=== PATIENT | male | born 1955 | race Caucasian/White ===

== ENCOUNTER 2019-08-01 15:57 | Emergency (ER) | payer SELFPAY ==
--- NOTE | 2019-08-01 16:10 | ERPHSYRPT ---
- History of Present Illness Time Seen by Provider: 08/01/19 16:10 Source: patient Exam Limitations: no limitations Physician History: 63 y/o white male presents with scalp laceration. 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 no loc. pt not on anticoag tx. pt was cutting wood with an electric saw. pt fell back and hit his head. tetanus status unknown. Timing/Duration: today Quality: painful (mild) Severity: mild Location: scalp Associated Symptoms: denies symptoms Allergies/Adverse Reactions: No Known Drug Allergies Allergy (Verified 08/01/19 16:16) Home Medications: No Reportable Medications [No Reported Medications] 08/01/19 [History] Hx Tetanus, Diphtheria Vaccination/Date Given: Yes Hx Influenza Vaccination/Date Given: Yes Hx Pneumococcal Vaccination/Date Given: No - Review of Systems Constitutional: No Symptoms Eyes: No Symptoms Ears, Nose, & Throat: No Symptoms Respiratory: No Symptoms Cardiac: No Symptoms Abdominal/Gastrointestinal: No Symptoms Genitourinary Symptoms: No Symptoms Musculoskeletal: No Symptoms Skin: Other (scalp laceration) Neurological: No Symptoms Psychological: No Symptoms Endocrine: No Symptoms Hematologic/Lymphatic: No Symptoms Immunological/Allergic: No Symptoms All Other Systems: Reviewed and Negative - Past Medical History Pertinent Past Medical History: No Neurological History: No Pertinent History ENT History: No Pertinent History Cardiac History: No Pertinent History Respiratory History: No Pertinent History Endocrine Medical History: No Pertinent History Musculoskeletal History: No Pertinent History GI Medical History: No Pertinent History History: No Pertinent History Psycho-Social History: No Pertinent History Male Reproductive Disorders: No Pertinent History - Past Surgical History Past Surgical History: Yes Neuro Surgical History: No Pertinent History Cardiac: No Pertinent History Respiratory: No Pertinent History Gastrointestinal: No Pertinent History Genitourinary: No Pertinent History Musculoskeletal: Orthopedic Surgery Male Surgical History: No Pertinent History Other Surgical History: right hand surgery x2 - Social History Smoking Status: Never smoker Exposure to second hand smoke: Yes Drug Use: none Patient Lives Alone: Yes - Nursing Vital Signs Nursing Vital Signs: Pain Scale Pain Intensity 0 - Physical Exam General Appearance: no apparent distress, alert Eye Exam: PERRL/EOMI, eyes nml inspection Ears, Nose, Throat Exam: normal ENT inspection, moist mucous membranes Neck Exam: normal inspection, non-tender, supple, full range of motion Respiratory Exam: airway intact, No chest tenderness, No respiratory distress Gastrointestinal/Abdomen Exam: No tenderness Rectal Exam: not done Back Exam: normal inspection, normal range of motion, No CVA tenderness, No vertebral tenderness Extremity Exam: normal inspection, normal range of motion, pelvis stable Neurologic Exam: alert, oriented x 3, cooperative, 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 no active bleeding) Lymphatic Exam: No adenopathy SpO2 Interpretation: normal O2 Delivery: Room Air Procedures - Laceration/Wound Repair Head Wound Location: head Wound Length (cm): 5 Wound's Depth, Shape: superficial, linear Wound Explored: to base Irrigated: Yes Hibiclens Prep: Yes Wound Repaired With: Arco (4) Number of Sutures: 4 (nury) Layer Closure?: No Progress: 08/01/19 16:39 no complaints. you well. - Course Nursing assessment & vital signs reviewed: Yes Ordered Tests: Medication Summary Discontinued Medications Generic Name Dose Route Start Last Admin Trade Name Freq PRN Reason Stop Dose Admin Diphtheria/Tetanus/Acell Pertussis 0.5 ml 08/01/19 16:24 08/01/19 16:31 Adacel Vial IM 08/01/19 16:25 0.5 ml .ONCE ONE Administration - Progress Progress: improved Counseled pt/family regarding: diagnosis, need for follow-up - Departure Departure Disposition: Home Clinical Impression: Scalp laceration Condition: Stable Critical Care Time: No Additional Instructions: keep dry for 24 hours. after 24 hours may wash daily and apply antibiotic ointment. staple removal in 8 to 10 days. tylenol and ibuprofen for pain
[2019-08-01] MEDS ORDERED: Adacel Vial IM ONE ×2 (16:24→16:30)
== END 2019-08-01 16:52 | disposition home or self-care (01) ==
LOC: ED 15:57
DX: S01.01XA Laceration without foreign body of scalp, initial encounter (principal); W01.198A Fall on same level from slipping, tripping and stumbling with subsequent striking against other object, initial encounter; Y93.H9 Activity, other involving exterior property and land maintenance, building and construction
CPT/HCPCS: 12002; 90471; 90715; 99283

== ENCOUNTER 2019-08-11 00:19 | Emergency (ER) | payer MEDICAID ==
[2019-08-11 01:00] VITALS: PULSE 77; O2SAT 97
--- NOTE | 2019-08-11 01:14 | ERPHSYRPT ---
- History of Present Illness Time Seen by Provider: 08/11/19 01:01 Source: patient Exam Limitations: no limitations Patient Subjective Stated Complaint: pt has arrived in er for staple removal on scalp Triage Nursing Assessment: pt alert and orietned. no pain at this time Physician History: 63 YO PRESNTED FOR NURY REMOVAL FROM SCALP PUT IN ALMOST 10 DAYS AGO WITH NO BLEEDING OR SWELLING/DISCHARGE. Location: scalp Allergies/Adverse Reactions: No Known Drug Allergies Allergy (Verified 08/01/19 16:16) Home Medications: No Reportable Medications [No Reported Medications] 08/01/19 [History] Hx Tetanus, Diphtheria Vaccination/Date Given: Yes Hx Influenza Vaccination/Date Given: Yes Hx Pneumococcal Vaccination/Date Given: No - Review of Systems Constitutional: No Symptoms Eyes: No Symptoms Ears, Nose, & Throat: No Symptoms Respiratory: No Symptoms Cardiac: No Symptoms - Past Medical History Pertinent Past Medical History: No Neurological History: No Pertinent History ENT History: No Pertinent History Cardiac History: No Pertinent History Respiratory History: No Pertinent History Endocrine Medical History: No Pertinent History Musculoskeletal History: No Pertinent History GI Medical History: No Pertinent History History: No Pertinent History Psycho-Social History: No Pertinent History Male Reproductive Disorders: No Pertinent History - Past Surgical History Past Surgical History: Yes Neuro Surgical History: No Pertinent History Cardiac: No Pertinent History Respiratory: No Pertinent History Gastrointestinal: No Pertinent History Genitourinary: No Pertinent History Musculoskeletal: Orthopedic Surgery Male Surgical History: No Pertinent History Other Surgical History: right hand surgery x2 - Social History Smoking Status: Never smoker Exposure to second hand smoke: Yes Drug Use: none Patient Lives Alone: Yes - Nursing Vital Signs Nursing Vital Signs: Initial Vital Signs Temperature 97.7 F 08/11/19 00:49 Pulse Rate 77 08/11/19 00:49 Respiratory Rate 18 08/11/19 00:49 O2 Sat by Pulse Oximetry 97 08/11/19 00:49 Pain Scale Pain Intensity 0 - Physical Exam General Appearance: no apparent distress Eye Exam: eyes nml inspection Ears, Nose, Throat Exam: normal ENT inspection Neck Exam: normal inspection, other (MID PARIETAL AREA [address] WITH [facility] ) Respiratory Exam: normal breath sounds Cardiovascular Exam: regular rate/rhythm SpO2: 97 - Course Nursing assessment & vital signs reviewed: Yes - Progress Progress: improved Progress Note: 08/11/19 01:13 STAPLE IS REMOVED. [facility] . PATIENT COUNSELED Counseled pt/family regarding: need for follow-up - Departure Departure Disposition: Home Clinical Impression: Encounter for removal of nury Condition: Stable Critical Care Time: No Referrals: DOCTOR,NO FAMILY [Primary Care Provider] - Follow Up with PCP/3 days
== END 2019-08-11 01:15 | disposition home or self-care (01) ==
LOC: ED 00:19
DX: Z48.02 Encounter for removal of sutures (principal)
CPT/HCPCS: 99283

== ENCOUNTER 2020-03-24 07:26 | Emergency (ER) | payer MEDICAID, OTHER ==
[2020-03-24] MEDS ORDERED: TORAdol 30 mg Injection ONE (07:41)
[2020-03-24] MEDS: TORAdol 30 mg Injection IM ONE (07:43)
--- NOTE | 2020-03-24 07:51 | ERPHSYRPT ---
- History of Present Illness Time Seen by Provider: 03/24/20 07:36 Source: patient Exam Limitations: no limitations Patient Subjective Stated Complaint: PT states "I was up on a machine and I fell off and hit my right lower leg." Triage Nursing Assessment: Pt presented alert and oriented X 3, skin pwd Pt ambulates with a limp. Pt has a contusion noted to right lower leg and deep abrasion to right lower leg just below his knee. Physician History: 64 years old generally healthy male presented in the ER with chief complaint of right upper tibial injury after he fell off of a machine and hit the foot rest at work prior to arrival. He has abrasion with minimal bleeding initially but currently stopped. He is complaining of mild to moderate dull aching to sharp pain especially with ambulation and applying pressure. Minimal difficulty walking. Pain is better with resting. Is also complaining of small abrasion in the left posterior thigh with minimal to no pain. Did not hit his head. No loss of consciousness. No injury anywhere else. Up to date with tetanus. Allergies/Adverse Reactions: No Known Drug Allergies Allergy (Verified 08/01/19 16:16) Hx Tetanus, Diphtheria Vaccination/Date Given: Yes Hx Influenza Vaccination/Date Given: No Hx Pneumococcal Vaccination/Date Given: No Immunizations Up to Date: Yes Travel Risk - International Travel Have you traveled outside of the country in past 3 weeks: No - Coronavirus Screening Are you exhibiting any of the following symptoms?: No Close contact with a COVID-19 positive Pt in past 14-21 Days: No - Review of Systems Constitutional: No Symptoms Eyes: No Symptoms Ears, Nose, & Throat: No Symptoms Respiratory: No Symptoms Cardiac: No Symptoms Abdominal/Gastrointestinal: No Symptoms Musculoskeletal: Fall, Injury Skin: Skin Lesions Neurological: No Symptoms Psychological: No Symptoms Endocrine: No Symptoms Hematologic/Lymphatic: No Symptoms Immunological/Allergic: No Symptoms - Past Medical History Pertinent Past Medical History: No Neurological History: No Pertinent History ENT History: No Pertinent History Cardiac History: No Pertinent History Respiratory History: No Pertinent History Endocrine Medical History: No Pertinent History Musculoskeletal History: No Pertinent History GI Medical History: No Pertinent History History: No Pertinent History Psycho-Social History: No Pertinent History Male Reproductive Disorders: No Pertinent History - Past Surgical History Past Surgical History: Yes Neuro Surgical History: No Pertinent History Cardiac: No Pertinent History Respiratory: No Pertinent History Gastrointestinal: No Pertinent History Genitourinary: No Pertinent History Musculoskeletal: Orthopedic Surgery Male Surgical History: No Pertinent History Other Surgical History: right hand surgery x2 - Social History Smoking Status: Never smoker Exposure to second hand smoke: Yes Drug Use: none Patient Lives Alone: No - Nursing Vital Signs Nursing Vital Signs: Initial Vital Signs Temperature 99.4 F 03/24/20 07:32 Pulse Rate 82 03/24/20 07:32 Respiratory Rate 20 03/24/20 07:32 Blood Pressure 118/60 03/24/20 07:32 O2 Sat by Pulse Oximetry 96 03/24/20 07:32 Pain Scale Pain Intensity 5 - Physical Exam General Appearance: no apparent distress, alert Eyes, Ears, Nose, Throat Exam: normal ENT inspection Neck Exam: normal inspection, non-tender, supple, full range of motion Cardiovascular/Respiratory Exam: chest non-tender, normal breath sounds, regular rate/rhythm Gastrointestinal/Abdominal Exam: non-tender, soft Back Exam: normal inspection, normal range of motion Hips Exam: bilateral: non-tender, normal inspection, normal range of motion Legs Exam: right leg: abrasions, bone tenderness (Anterior leg just below tibial tuberosity. Abrasion with surrounding erythema/swelling.), pain, soft tissue tenderness, swelling, left leg: non-tender, normal inspection, normal range of motion, no evidence of injury Knees Exam: bilateral knee: non-tender, normal inspection, normal range of motion, no evidence of injury Ankle Exam: bilateral ankle: non-tender, normal inspection, normal range of motion Foot Exam: bilateral foot: non-tender, normal inspection, normal range of motion Neuro/Tendon Exam: normal sensation, normal motor functions, normal tendon functions Mental Status Exam: alert, oriented x 3 Skin Exam: normal color SpO2 Interpretation: normal SpO2: 96 O2 Delivery: Room Air - Course Nursing assessment & vital signs reviewed: Yes Ordered Tests: Active Orders 24 hr Category Date Time Status LOWER LEG Stat Exams 03/24/20 07:55 Completed Medication Summary Discontinued Medications Generic Name Dose Route Start Last Admin Trade Name Freq PRN Reason Stop Dose Admin Ketorolac Tromethamine 30 mg 03/24/20 07:35 03/24/20 07:43 Toradol 30 Mg Injection IM 03/24/20 07:36 30 mg STAT ONE Administration Ketorolac Tromethamine Confirm 03/24/20 07:41 Toradol 30 Mg Injection Administered 03/24/20 07:42 Dose 30 mg .ROUTE .STK-MED ONE - Progress Progress: improved, pain not gone completely, re-examined Progress Note: 03/24/20 he is given Toradol for symptomatic relief. X-rays ruled out fracture dislocation. I believe patient has contusion. Bacitracin applied. Recommended NSAIDs and outpatient follow-up. Counseled pt/family regarding: diagnosis, need for follow-up, rad results - Departure Departure Disposition: Home Clinical Impression: Contusion of leg, right Qualifiers: Encounter type: initial encounter Qualified Code(s): S80.11XA - Contusion of right lower leg, initial encounter Condition: Stable Critical Care Time: No Referrals: DOCTOR,NO FAMILY [Primary Care Provider] - ELAINA RUVALCABA [ACTIVE STAFF] - Follow Up with PCP/3 days Instructions: Fracture (DC), Contusion (DC) Additional Instructions: Apply ice. Elevation. Tylenol/ibuprofen as needed for pain. Follow-up with primary care for reevaluation. Return to ER for worsening. Prescriptions: Ibuprofen 600 mg PO Q6HPRN PRN 10 Days #20 tablet PRN Reason: Pain
[2020-03-24 08:16] VITALS: BP 124/65; PULSE 60
[2020-03-24 08:56] VITALS: O2SAT 96
--- NOTE | 2020-03-24 08:56 | XRAY ---
Indication: Pain following fall. Comparison: None 2 view right lower leg demonstrates medial/lateral knee degenerative chondrocalcinosis and tiny posterior heel spur. No other bony, articular, or soft tissue abnormalities.
== END 2020-03-24 08:51 | disposition home or self-care (01) ==
LOC: ED 07:26
DX: S80.11XA Contusion of right lower leg, initial encounter (principal); S80.811A Abrasion, right lower leg, initial encounter; W31.89XA Contact with other specified machinery, initial encounter; Y93.9 Activity, unspecified; Y92.69 Other specified industrial and construction area as the place of occurrence of the external cause; Y99.0 Civilian activity done for income or pay
CPT/HCPCS: 73590; 96372; 99284; J1885

== ENCOUNTER 2021-04-21 16:44 | Observation (INO) | payer MEDICAID, OTHER ==
[2021-04-21] MEDS ORDERED: Sodium Chloride 0.9% 1000 ML 1,000 ML IV STA (17:41)
[2021-04-21] MEDS ORDERED: Sodium Chloride 0.9% 1000 ML 1,000 ML ONE (18:00)
--- NOTE | 2021-04-21 18:06 | ERPHSYRPT ---
- History of Present Illness Source: patient Patient Subjective Stated Complaint: Pt states that he has congestion in his l ungs and he's been coughing and can't get it up Triage Nursing Assessment: Pt brought to the ER by his son, vitals wnl, rates pain in right chest when he coughs as a 5/10, right lungs wheezy and crackles, denies shortness of breath, denies any other symptoms Timing/Duration: week(s) (1) Cough Quality/Degree: severe, productive cough Possible Cause: no prior episodes Modifying Factors: Improves With: coughing Associated Symptoms: cough, nasal congestion, nasal drainage, shortness of breath, sinus infection Hx Tetanus, Diphtheria Vaccination/Date Given: Yes Hx Influenza Vaccination/Date Given: No Hx Pneumococcal Vaccination/Date Given: No <KEENA PAUL - Last Filed: 04/21/21 18:03> <HOWIE QUINONES - Last Filed: 04/22/21 03:45> - History of Present Illness Time Seen by Provider: 04/21/21 17:15 Physician History: Patient is a 65-year-old white male who has been sick for more than a week he presents with a complaint of cough and congestion. He denies any fever although he has not taken his temperature. He has been very congested in his head and in his chest his taste and smell are okay he denies any headache or body aches to be specific (KEENA PAUL) Allergies/Adverse Reactions: No Known Drug Allergies Allergy (Verified 04/21/21 17:19) Home Medications: No Reportable Medications [No Reported Medications] 04/21/21 [History] Travel Risk - International Travel Have you traveled outside of the country in past 3 weeks: No - Coronavirus Screening Are you exhibiting any of the following symptoms?: No Close contact with a COVID-19 positive Pt in past 14-21 Days: No - Vaccine Status Have you recieved a Covid-19 vaccination: No <KEENA PAUL - Last Filed: 04/21/21 18:03> - Review of Systems Constitutional: No Fever, No Chills Eyes: No Symptoms Ears, Nose, & Throat: Nose Congestion, Nose Discharge, Sinus Drainage Respiratory: Cough, Dyspnea, Wheezing Cardiac: No Chest Pain, No Edema, No Syncope Abdominal/Gastrointestinal: No Abdominal Pain, No Nausea, No Vomiting, No Diarrhea Genitourinary Symptoms: No Dysuria Musculoskeletal: No Back Pain, No Neck Pain Skin: No Rash Neurological: No Dizziness, No Focal Weakness, No Sensory Changes Psychological: No Symptoms Endocrine: No Symptoms All Other Systems: Reviewed and Negative <KEENA PAUL Filed: 04/21/21 18:03> - Past Medical History Pertinent Past Medical History: No Neurological History: No Pertinent History ENT History: No Pertinent History Cardiac History: No Pertinent History Respiratory History: No Pertinent History Endocrine Medical History: No Pertinent History Musculoskeletal History: No Pertinent History GI Medical History: No Pertinent History History: No Pertinent History Psycho-Social History: No Pertinent History Male Reproductive Disorders: No Pertinent History - Past Surgical History Past Surgical History: Yes Neuro Surgical History: No Pertinent History Cardiac: No Pertinent History Respiratory: No Pertinent History Gastrointestinal: No Pertinent History Genitourinary: No Pertinent History Musculoskeletal: Orthopedic Surgery Male Surgical History: No Pertinent History Other Surgical History: right hand surgery x2 - Social History Smoking Status: Never smoker Exposure to second hand smoke: Yes Drug Use: none Patient Lives Alone: No <KEENA PAUL Filed: 04/21/21 18:03> - Physical Exam General Appearance: mild distress, alert Eye Exam: PERRL/EOMI, eyes nml inspection Ears, Nose, Throat Exam: dry mucous membranes Neck Exam: normal inspection, non-tender, supple, full range of motion Respiratory Exam: respiratory distress, crackles/rales, rhonchi, wheezing Cardiovascular Exam: regular rate/rhythm, normal heart sounds Gastrointestinal/Abdomen Exam: soft, No tenderness Back Exam: normal inspection, No CVA tenderness, No vertebral tenderness Extremity Exam: normal inspection, normal range of motion Neurologic Exam: alert, oriented x 3, cooperative, normal mood/affect, sensation nml, No motor deficits Skin Exam: normal color, warm, dry, No rash Lymphatic Exam: No adenopathy SpO2: 94 <KEENA PAUL Filed: 04/21/21 18:03> - Nursing Vital Signs Nursing Vital Signs: Initial Vital Signs Temperature 97.4 F 04/21/21 17:09 Pulse Rate 92 H 04/21/21 17:09 Blood Pressure 136/86 04/21/21 17:09 O2 Sat by Pulse Oximetry 94 L 04/21/21 17:09 Pain Scale Pain Intensity 4 - Course Nursing assessment & vital signs reviewed: Yes EKG Interpreted by Me: RATE (76), Sinus Rhythm, NORMAL AXIS, NORMAL INTERVALS - Radiology Exams Chest X-ray Interpretation: Interpreted by me (Increased interstitial markings right midlung infiltrate versus atelectasis.) - CT Exams Chest CT Interpretation: Tele-radiologist Report (Comps. Suboptimal contrast opacification and respiration artifact limits PE evaluation. No obvious central PE. Scattered bilateral peripheral airspace disease right greater than left fatty liver.) <HOWIE QUINONES - Last Filed: 04/22/21 03:45> Ordered Tests: Active Orders 24 hr Category Date Time Status Bedrest with BRP/BSC ROUTINE Activity 04/22/21 02:34 Active Topper Packer ROUTINE Care 04/22/21 02:34 Completed EKG-ER Only STAT Care 04/21/21 17:41 Completed Isolation, Initiate & Maintain Q6H Care 04/22/21 02:34 Active Isolation, Initiate & Maintain Q6H Care 04/22/21 02:34 Active Neuro Checks Q4H Care 04/22/21 02:[address] in Observation ROUTINE Care 04/22/21 02:34 Active Telemetry q4h Care 04/22/21 02:34 Active Vital Signs Q4H Care 04/22/21 02:34 Active Consistent Carbohydrate Diet 1800 Calorie Diet 04/22/21 Breakfast Active CHEST 1 VIEW (PORTABLE) Stat Exams 04/21/21 17:42 Taken CHEST WITH CONTRAST [CT] Stat Exams 04/21/21 19:50 Taken BLOOD CULTURE Stat Lab 04/21/21 18:30 Received CBC W DIFF AM.LAB Lab 04/22/21 04:00 Ordered CBC W DIFF Stat Lab 04/21/21 18:15 Completed CMP AM.LAB Lab 04/22/21 04:00 Ordered CMP Stat Lab 04/21/21 18:15 Completed CULTURE,SPUTUM Stat Lab 04/21/21 18:06 Ordered D-DIMER QUANTITATIVE Stat Lab 04/21/21 17:44 Completed INFLUENZA A+B SHAYLA Stat Lab 04/21/21 18:45 Completed Lactic Acid Stat Lab 04/21/21 19:00 Completed PROCALCITONIN Stat Lab 04/21/21 18:15 Completed PROTIME WITH INR Stat Lab 04/21/21 18:15 Completed TROPONIN Q3H Lab 04/21/21 18:15 Completed TROPONIN Q3H Lab 04/21/21 20:50 Completed UA W/RFX UR CULTURE Stat Lab 04/21/21 18:19 Completed Pulse Oximetry ROUTINE RT 04/22/21 02:34 Active Respiratory Therapy Consult ROUTINE RT 04/22/21 02:34 Completed Respiratory Therapy Consult ROUTINE RT 04/22/21 02:34 Completed Transfer Order Routine Transfer 04/22/21 Completed Medication Summary Generic Name Dose Route Start Last Admin Trade Name Justin PRN Reason Stop Dose Admin Albuterol Sulfate 4 puff 04/22/21 02:34 Ventolin Common Canister IH 05/22/21 02:33 Q4H PRN PRN SHORTNESS OF BREATH/WHEEZING Azithromycin 500 mg in 250 mls @ 250 mls/hr 04/22/21 10:00 04/22/21 00:01 Zithromax 500 Mg/ 250 Ml Nacl Premix IV 05/22/21 09:59 250 mls/hr Q24H10 TOBI 250 mls/hr Administration Morphine Sulfate 4 mg 04/22/21 02:34 Morphine Sulfate 4 Mg Inj IV 04/27/21 02:33 Q4H PRN PRN PAIN Discontinued Medications Generic Name Dose Route Start Last Admin Trade Name Justin PRN Reason Stop Dose Admin Albuterol/Ipratropium 3 ml 04/21/21 22:31 04/21/21 22:40 Duoneb 0.5-3 Mg/3 Ml Neb IH 04/21/21 22:32 3 ml STAT ONE Administration Albuterol/Ipratropium Confirm 04/21/21 22:36 Duoneb 0.5-3 Mg/3 Ml Neb Administered 04/21/21 22:37 Dose 3 ml IH .STK-MED ONE Methylprednisolone Sodium 0 mg 04/21/21 22:30 04/21/21 23:21 Succinate 125 mg/ Sterile IV 04/21/21 22:31 125 mg Water 2 ml STAT ONE Administration Sodium Chloride 1,000 mls @ 999 mls/hr 04/21/21 17:41 04/21/21 18:06 Sodium Chloride 0.9% 1000 Ml IV 04/21/21 18:41 999 mls/hr .Q1H1M STA Administration Sodium Chloride Confirm 04/21/21 18:00 Sodium Chloride 0.9% 1000 Ml Administered 04/21/21 18:01 Dose 1,000 mls @ ud .ROUTE .STK-MED ONE Ceftriaxone Sodium/Dextrose 2 g in 50 mls @ 100 mls/hr 04/21/21 22:24 04/21/21 23:20 Rocephin 2 Gm-D5w 50ml Bag IV 04/21/21 22:53 100 ml/hr STAT ONE 100 mls/hr Administration Magnesium Sulfate/Dextrose 100 mls @ 100 mls/hr 04/21/21 22:30 04/22/21 00:01 Magnesium 1 Gm / 100 Ml D5w IV 04/22/21 00:29 100 mls/hr Q1H TOBI Administration Ceftriaxone Sodium/Dextrose Confirm 04/21/21 23:10 Rocephin 2 Gm-D5w 50ml Bag Administered 04/21/21 23:11 Dose 2 g in 50 mls @ ud IV .STK-MED ONE Magnesium Sulfate/Dextrose Confirm 04/21/21 23:10 Magnesium 1 Gm / 100 Ml D5w Administered 04/21/21 23:11 Dose 200 mls @ ud IV .STK-MED ONE Methylprednisolone Sodium Succinate Confirm 04/21/21 23:10 Solu-Medrol Administered 04/21/21 23:11 Dose 125 mg .ROUTE .STK-MED ONE Potassium Chloride 40 meq 04/21/21 22:25 04/21/21 23:21 Klor Con 10 Meq PO 04/21/21 22:26 40 meq STAT ONE Administration Potassium Chloride Confirm 04/21/21 23:10 Klor Con 10 Meq Administered 04/21/21 23:11 Dose 40 meq PO .STK-MED ONE Sterile Water Confirm 04/21/21 23:10 Sterile H2o 10 Ml Administered 04/21/21 23:11 Dose 10 ml IJ .STK-MED ONE Lab/Rad Data: Laboratory Result Diagrams 04/21/21 18:15 04/21/21 18:15 Laboratory Results 04/21/21 04/21/21 04/21/21 Range/Units 20:50 19:00 18:45 WBC (4.0-10.5) K/mm3 RBC (4.1-5.6) M/mm3 Hgb (12.5-18.0) gm/dl Hct (42-50) % MCV (78-100) fl MCH (26-32) pg MCHC (32-36) g/dl RDW (11.5-14.0) % Plt Count (150-450) K/mm3 MPV (7.5-11.0) fl Gran % (36.0-66.0) % Eos # (Auto) (0-0.5) Absolute Lymphs (auto) (1.0-4.6) Absolute Monos (auto) (0.0-1.3) Lymphocytes % (24.0-44.0) % Monocytes % (0.0-12.0) % Eosinophils % (0.00-5.0) % Basophils % (0.0-0.4) % Absolute Granulocytes (1.4-6.9) Basophils # (0-0.4) PT (9.4-12.5) SECONDS INR (0.8-3.0) D-Dimer (215-500) ng/mL Sodium (137-145) mmol/L Potassium (3.5-5.1) mmol/L Chloride (98-107) mmol/L Carbon Dioxide (22-30) mmol/L Anion Gap (5-15) MEQ/L BUN (9-20) mg/dL Creatinine (0.66-1.25) mg/dL Estimated GFR ML/MIN Glucose (74-106) mg/dL Lactic Acid 1.6 (0.4-2.0) Calcium (8.4-10.2) mg/dL Total Bilirubin (0.2-1.3) mg/dL AST (17-59) U/L ALT (0-50) U/L Alkaline Phosphatase (38-126) U/L Troponin I < 0.012 (0.000-0.034) ng/mL Serum Total Protein (6.3-8.2) g/dL Albumin (3.5-5.0) g/dL Procalcitonin (0.030-0.080) ng/mL Urine Color (YELLOW) Urine Appearance (CLEAR) Urine pH (5-6) Ur Specific Lima (1.005-1.025) Urine Protein (Negative) Urine Ketones (NEGATIVE) Urine Blood (0-5) John/ul Urine Nitrite (NEGATIVE) Urine Bilirubin (NEGATIVE) Urine Urobilinogen (0-1) mg/dL Ur Leukocyte Esterase (NEGATIVE) Urine WBC (Auto) (0-5) /HPF Urine RBC (Auto) (0-2) /HPF Urine Mucus (Auto) (NEGATIVE) /HPF Urine Culture Reflexed (NO) Urine Glucose (NEGATIVE) mg/dL Influenza Type A Ag NEGATIVE (NEGATIVE) Influenza Type B Ag NEGATIVE (NEGATIVE) 04/21/21 04/21/21 04/21/21 Range/Units 18:19 18:15 18:15 WBC (4.0-10.5) K/mm3 RBC (4.1-5.6) M/mm3 Hgb (12.5-18.0) gm/dl Hct (42-50) % MCV (78-100) fl MCH (26-32) pg MCHC (32-36) g/dl RDW (11.5-14.0) % Plt Count (150-450) K/mm3 MPV (7.5-11.0) fl Gran % (36.0-66.0) % Eos # (Auto) (0-0.5) Absolute Lymphs (auto) (1.0-4.6) Absolute Monos (auto) (0.0-1.3) Lymphocytes % (24.0-44.0) % Monocytes % (0.0-12.0) % Eosinophils % (0.00-5.0) % Basophils % (0.0-0.4) % Absolute Granulocytes (1.4-6.9) Basophils # (0-0.4) PT (9.4-12.5) SECONDS INR (0.8-3.0) D-Dimer (215-500) ng/mL Sodium (137-145) mmol/L Potassium (3.5-5.1) mmol/L Chloride (98-107) mmol/L Carbon Dioxide (22-30) mmol/L Anion Gap (5-15) MEQ/L BUN (9-20) mg/dL Creatinine (0.66-1.25) mg/dL Estimated GFR ML/MIN Glucose (74-106) mg/dL Lactic Acid (0.4-2.0) Calcium (8.4-10.2) mg/dL Total Bilirubin (0.2-1.3) mg/dL AST (17-59) U/L ALT (0-50) U/L Alkaline Phosphatase (38-126) U/L Troponin I < 0.012 (0.000-0.034) ng/mL Serum Total Protein (6.3-8.2) g/dL Albumin (3.5-5.0) g/dL Procalcitonin 0.100 H (0.030-0.080) ng/mL Urine Color BJ (YELLOW) Urine Appearance SLIGHTLY CLOUDY (CLEAR) Urine pH 5.0 (5-6) Ur Specific Lima 1.026 (1.005-1.025) Urine Protein 30 (Negative) Urine Ketones NEGATIVE (NEGATIVE) Urine Blood NEGATIVE (0-5) John/ul Urine Nitrite NEGATIVE (NEGATIVE) Urine Bilirubin SMALL (NEGATIVE) Urine Urobilinogen 2 (0-1) mg/dL Ur Leukocyte Esterase NEGATIVE (NEGATIVE) Urine WBC (Auto) 3-5 (0-5) /HPF Urine RBC (Auto) NONE (0-2) /HPF Urine Mucus (Auto) SLIGHT (NEGATIVE) /HPF Urine Culture Reflexed NO (NO) Urine Glucose NEGATIVE (NEGATIVE) mg/dL Influenza Type A Ag (NEGATIVE) Influenza Type B Ag (NEGATIVE) 04/21/21 04/21/21 04/21/21 Range/Units 18:15 18:15 18:15 WBC 3.5 L (4.0-10.5) K/mm3 RBC 4.77 (4.1-5.6) M/mm3 Hgb 14.7 (12.5-18.0) gm/dl Hct 42.2 (42-50) % MCV 88.5 (78-100) fl MCH 30.8 (26-32) pg MCHC 34.8 (32-36) g/dl RDW 12.6 (11.5-14.0) % Plt Count 149 L (150-450) K/mm3 MPV 10.5 (7.5-11.0) fl Gran % 67.5 H (36.0-66.0) % Eos # (Auto) 0.01 (0-0.5) Absolute Lymphs (auto) 0.72 L (1.0-4.6) Absolute Monos (auto) 0.42 (0.0-1.3) Lymphocytes % 20.3 L (24.0-44.0) % Monocytes % 11.9 (0.0-12.0) % Eosinophils % 0.3 (0.00-5.0) % Basophils % 0.0 (0.0-0.4) % Absolute Granulocytes 2.39 (1.4-6.9) Basophils # 0 (0-0.4) PT 12.5 (9.4-12.5) SECONDS INR 1.06 (0.8-3.0) D-Dimer (215-500) ng/mL Sodium 135 L (137-145) mmol/L Potassium 3.2 L (3.5-5.1) mmol/L Chloride 96 L (98-107) mmol/L Carbon Dioxide 28 (22-30) mmol/L Anion Gap 14.6 (5-15) MEQ/L BUN 14 (9-20) mg/dL Creatinine 0.85 (0.66-1.25) mg/dL Estimated GFR > 60.0 ML/MIN Glucose 136 H (74-106) mg/dL Lactic Acid (0.4-2.0) Calcium 8.4 (8.4-10.2) mg/dL Total Bilirubin 0.70 (0.2-1.3) mg/dL AST 63 H (17-59) U/L ALT 47 (0-50) U/L Alkaline Phosphatase 58 (38-126) U/L Troponin I (0.000-0.034) ng/mL Serum Total Protein 7.1 (6.3-8.2) g/dL Albumin 4.2 (3.5-5.0) g/dL Procalcitonin (0.030-0.080) ng/mL Urine Color (YELLOW) Urine Appearance (CLEAR) Urine pH (5-6) Ur Specific Lima (1.005-1.025) Urine Protein (Negative) Urine Ketones (NEGATIVE) Urine Blood (0-5) John/ul Urine Nitrite (NEGATIVE) Urine Bilirubin (NEGATIVE) Urine Urobilinogen (0-1) mg/dL Ur Leukocyte Esterase (NEGATIVE) Urine WBC (Auto) (0-5) /HPF Urine RBC (Auto) (0-2) /HPF Urine Mucus (Auto) (NEGATIVE) /HPF Urine Culture Reflexed (NO) Urine Glucose (NEGATIVE) mg/dL Influenza Type A Ag (NEGATIVE) Influenza Type B Ag (NEGATIVE) 04/21/21 04/21/21 Range/Units 17:44 00:10 WBC (4.0-10.5) K/mm3 RBC (4.1-5.6) M/mm3 Hgb (12.5-18.0) gm/dl Hct (42-50) % MCV (78-100) fl MCH (26-32) pg MCHC (32-36) g/dl RDW (11.5-14.0) % Plt Count (150-450) K/mm3 MPV (7.5-11.0) fl Gran % (36.0-66.0) % Eos # (Auto) (0-0.5) Absolute Lymphs (auto) (1.0-4.6) Absolute Monos (auto) (0.0-1.3) Lymphocytes % (24.0-44.0) % Monocytes % (0.0-12.0) % Eosinophils % (0.00-5.0) % Basophils % (0.0-0.4) % Absolute Granulocytes (1.4-6.9) Basophils # (0-0.4) PT (9.4-12.5) SECONDS INR (0.8-3.0) D-Dimer 891 H* (215-500) ng/mL Sodium (137-145) mmol/L Potassium (3.5-5.1) mmol/L Chloride (98-107) mmol/L Carbon Dioxide (22-30) mmol/L Anion Gap (5-15) MEQ/L BUN (9-20) mg/dL Creatinine (0.66-1.25) mg/dL Estimated GFR ML/MIN Glucose (74-106) mg/dL Lactic Acid (0.4-2.0) Calcium (8.4-10.2) mg/dL Total Bilirubin (0.2-1.3) mg/dL AST (17-59) U/L ALT (0-50) U/L Alkaline Phosphatase (38-126) U/L Troponin I < 0.012 (0.000-0.034) ng/mL Serum Total Protein (6.3-8.2) g/dL Albumin (3.5-5.0) g/dL Procalcitonin (0.030-0.080) ng/mL Urine Color (YELLOW) Urine Appearance (CLEAR) Urine pH (5-6) Ur Specific Lima (1.005-1.025) Urine Protein (Negative) Urine Ketones (NEGATIVE) Urine Blood (0-5) John/ul Urine Nitrite (NEGATIVE) Urine Bilirubin (NEGATIVE) Urine Urobilinogen (0-1) mg/dL Ur Leukocyte Esterase (NEGATIVE) Urine WBC (Auto) (0-5) /HPF Urine RBC (Auto) (0-2) /HPF Urine Mucus (Auto) (NEGATIVE) /HPF Urine Culture Reflexed (NO) Urine Glucose (NEGATIVE) mg/dL Influenza Type A Ag (NEGATIVE) Influenza Type B Ag (NEGATIVE) - Progress Progress: improved Air Movement: good Blood Culture(s) Obtained: Yes Antibiotics given: Yes Discussed with DrMaria De Jesus: Other (Daniel.) Will see patient in: hospital (observation) Counseled pt/family regarding: lab results, diagnosis, need for follow-up, rad results <HOWIE QUINONES - Last Filed: 04/22/21 03:45> - Progress Progress Note: Patient endorsed to Dr. Quinones at approximately 7:[address] Quinones advised to follow-up on CTA chest and admit. CT chest negative for PE. Patient will be admitted for further evaluation and treatment of COPD exacerbation. Covid test positive. Case discussed with Dr. Lainez who accepts admission to observation in the Covid unit. Plan of care discussed with patient. He agrees to admission at [facility] for further evaluation and treatment. Patient voices no other complaints or concerns at this time. Blood cultures obtained. Antibiotics infused. Breathing treatment and steroids administered. Potassium mildly decreased. Potassium replacement administered. Portions of this note were created with voice recognition technology. There may be grammatical, spelling, punctuation or sound alike errors 04/22/21 03:41 04/22/21 03:44 (HOWIE QUINONES) <KEENA PAUL - Last Filed: 04/21/21 18:03> - Departure Departure Disposition: Observation Critical Care Time: No <HOWIE QUINONES - Last Filed: 04/22/21 03:45> - Departure Clinical Impression: Hepatic steatosis, Leukopenia, Thrombocytopenia, Hypokalemia, Hyponatremia, Elevated procalcitonin, Lactic acidosis, COPD exacerbation Condition: Stable
[2021-04-21 18:26] LABS: Appearance SLIGHTLY CLOUDY (CLEAR); Bilirubin SMALL (NEGATIVE); Blood NEGATIVE Ery/ul (0-5); Glucose NEGATIVE (NEGATIVE); Ketones NEGATIVE (NEGATIVE); Leukocyte Esterase NEGATIVE (NEGATIVE); Mucus SLIGHT /HPF (NEGATIVE); Nitrite NEGATIVE (NEGATIVE); Protein,Urine Dip 30 (Negative); Specific Gravity 1.026 (1.005-1.025); Urobilinogen 2 mg/dL (0-1)
[2021-04-21 18:27] LABS: Absolute Neutrophil Ct (ANC) 2.39 (1.4-6.9); Basophil (Absolute #) 0 (0-0.4); Eosinophil % 0.3 % (0.00-5.0); Eosinophil (Absolute #) 0.01 (0-0.5); Hematocrit 42.2 % (42-50); Hemoglobin 14.7 gm/dl (12.5-18.0); Lymphocyte (Absolute #) 0.72 (1.0-4.6); Lymphocytes % 20.3 % (24.0-44.0); Mean Cell Volume 88.5 fl (78-100); Mean Corpuscular Hemoglobin 30.8 pg (26-32); Mean Corpuscular Hgb Concent. 34.8 g/dl (32-36); Mean Platelet Volume 10.5 fl (7.5-11.0); Monocyte (Absolute #) 0.42 (0.0-1.3); Monocytes % 11.9 % (0.0-12.0); Neutrophil % 67.5 % (36.0-66.0); Platelet Count 149 K/mm3 (150-450); Red Blood Count 4.77 M/mm3 (4.1-5.6); Red Cell Distribution Width 12.6 % (11.5-14.0); White Blood Count 3.5 K/mm3 (4.0-10.5)
[2021-04-21 18:30] LABS: INR 1.06 (0.8-3.0); PROTIME 12.5 SECONDS (9.4-12.5)
[2021-04-21 18:36] LABS: ALBUMIN 4.2 g/dL (3.5-5.0); ALKALINE PHOSPHATASE 58 U/L (38-126); ANION GAP 14.6 MEQ/L (5-15); BLOOD UREA NITROGEN 14 mg/dL (9-20); CHLORIDE 96 mmol/L (98-107); Calcium 8.4 mg/dL (8.4-10.2); Carbon Dioxide 28 mmol/L (22-30); Creatinine 1 0.85 mg/dL (0.66-1.25); EST GLOMERULAR FILTRATION RATE > 60.0 ML/MIN; Glucose 136 mg/dL (74-106); Potassium 3.2 mmol/L (3.5-5.1); SGOT/AST 63 U/L (17-59); SGPT/ALT 47 U/L (0-50); SODIUM 135 mmol/L (137-145); Total Protein 7.1 g/dL (6.3-8.2)
[2021-04-21 19:05] LABS: INFLUENZA A NEGATIVE (NEGATIVE); INFLUENZA B NEGATIVE (NEGATIVE)
[2021-04-21] MEDS ORDERED: ROCEPHIN 2 Gm-D5w 50ML BAG** 2 G/50 ML IVPB IV ONE ×2 (22:24→23:10)
[2021-04-21] MEDS ORDERED: Klor Con 10 MEQ PO ONE ×2 (22:25→23:10)
[2021-04-21] MEDS ORDERED: solu-MEDROL 125 MG, Sterile H2O 10 ml 2 ML IV ONE ×2 (22:30)
[2021-04-21] MEDS ORDERED: DUONEB 0.5-3 MG/3 ml Neb IH ONE ×2 (22:31→22:36)
[2021-04-21] MEDS ORDERED: Magnesium 1 Gm / 100 Ml D5W*** 200 ML IV ONE (23:10)
[2021-04-21] MEDS ORDERED: solu-MEDROL ONE (23:10)
[2021-04-21] MEDS ORDERED: Sterile H2O 10 ml IJ ONE (23:10)
[2021-04-21] MEDS: Magnesium 1 Gm / 100 Ml D5W*** 100 ML IV SCH (23:20)
[2021-04-22] MEDS: Magnesium 1 Gm / 100 Ml D5W*** 100 ML IV SCH (00:01)
[2021-04-22] MEDS ORDERED: MORPHINE SULFATE 4 MG INJ IV PRN (02:34)
[2021-04-22] MEDS ORDERED: VENTOLIN COMMON CANISTER IH PRN (02:34)
[2021-04-22 06:19] LABS: Absolute Neutrophil Ct (ANC) 2.26 (1.4-6.9); Basophil (Absolute #) 0 (0-0.4); Eosinophil (Absolute #) 0 (0-0.5); Hemoglobin 13.5 gm/dl (12.5-18.0); Lymphocyte (Absolute #) 0.33 (1.0-4.6); Lymphocytes % 12.3 % (24.0-44.0); Mean Cell Volume 89.5 fl (78-100); Mean Corpuscular Hemoglobin 30.2 pg (26-32); Mean Corpuscular Hgb Concent. 33.8 g/dl (32-36); Mean Platelet Volume 10.6 fl (7.5-11.0); Monocyte (Absolute #) 0.09 (0.0-1.3); Monocytes % 3.4 % (0.0-12.0); Neutrophil % 84.3 % (36.0-66.0); Platelet Count 152 K/mm3 (150-450); Red Blood Count 4.47 M/mm3 (4.1-5.6); Red Cell Distribution Width 12.6 % (11.5-14.0); White Blood Count 2.7 K/mm3 (4.0-10.5)
[2021-04-22 06:46] LABS: ALBUMIN 3.8 g/dL (3.5-5.0); ALKALINE PHOSPHATASE 58 U/L (38-126); ANION GAP 13.6 MEQ/L (5-15); BLOOD UREA NITROGEN 12 mg/dL (9-20); CHLORIDE 99 mmol/L (98-107); Calcium 8.7 mg/dL (8.4-10.2); Carbon Dioxide 26 mmol/L (22-30); Creatinine 1 0.82 mg/dL (0.66-1.25); EST GLOMERULAR FILTRATION RATE > 60.0 ML/MIN; Glucose 234 mg/dL (74-106); SGOT/AST 56 U/L (17-59); SGPT/ALT 45 U/L (0-50); SODIUM 135 mmol/L (137-145); Total Protein 6.8 g/dL (6.3-8.2)
--- NOTE | 2021-04-22 09:07 | XRAY ---
Indication: Congestion. Comparison: None Portable chest demonstrates right mid lung infiltrate versus atelectasis and right hemidiaphragm elevation. Remaining heart and lungs unremarkable. Bony thorax intact.
--- NOTE | 2021-04-22 09:07 | XRAY ---
Indication: Congestion. Elevated d-dimer. Multiple contiguous images obtained through the chest using 80 cc Isovue 370 contrast and PE protocol. Comparison: None There is suboptimal opacification of the pulmonary arteries and mild respiration artifact limiting evaluation for pulmonary embolus. No obvious central pulmonary embolus. Heart is not enlarged. Aorta normal in course and caliber. No pathologic mediastinal/hilar lymphadenopathy. Lungs demonstrates mild diffuse peripheral airspace disease, right lung greater than left. No consolidation/effusion. Incidental right hemidiaphragmatic elevation. Bony thorax intact with mild degenerative changes throughout the spine. Limited upper abdomen demonstrates mild fatty liver and cholecystectomy clips. Impression: 1. Pulmonary embolus evaluation limited by suboptimal contrast opacification and respiration artifact. No obvious central pulmonary embolus. 2. Diffuse bilateral peripheral airspace disease right lung greater than left. Commonly reported imaging features of Covid 19 pneumonia are present. Other processes such as influenza pneumonia and organizing pneumonia, as can be seen with drug toxicity and connective tissue disease, can cause a similar imaging pattern. 3. Incidental fatty liver and right hemidiaphragm elevation.
[2021-04-22 09:26] VITALS: BP 121/71
--- NOTE | 2021-04-22 09:59 | SSS ---
ADMISSION DIAGNOSES: 1) Cough. 2) Chest pain. DISCHARGE DIAGNOSES: 1) COVID. 2) CHEST WALL PAIN. HISTORY: A 65-year-old white male came to the emergency room for chest pain. He thought it was more sharp in particular it was worse with coughing, seems like he is wheezing. It is in his right upper chest and is 5/10. He denied shortness of breath. He states he has no lung disease, denies smoking. He does not know of any exposure to COVID. His son said he had COVID vaccine some time ago and works at the [employer]. He lives with his son. He has been a little short of breath, stuffed up head, runny nose and this has all been for a week. He denies any fever. He denies any change in taste or smell. PAST SURGICAL HISTORY: Hand surgery. MEDICATIONS: None. ALLERGIES: NKDA. VACCINE STATUS: No vaccine. TRAVEL RISK: No traveling. No exposure that he knows of. REVIEW OF SYSTEMS: CONSTITUTIONAL: No fever. No chills. HEENT: Runny nose, stopped up head, occasional cough. ABDOMEN: No nausea or vomiting. Occasional diarrhea but not frequent. : Sharp chest pain right side worse with deep inhalation. SOCIAL HISTORY: , two children, lives with a son. He does not smoke. He has been working at the [employer] but not recently apparently. They may be down. PHYSICAL EXAMINATION: The patient is a healthy, strong looking 65-year-old white male in no acute distress this morning. Temperature 96F, pulse 70, blood pressure 130/82. O2 saturation 94% on room air. HEENT: Pupils equal and reactive to light. NECK: Supple without adenopathy. CHEST: Clear. No chest wall tenderness. CVS: No murmurs or gallops. ABDOMEN: Soft. No masses or organomegaly. EXTREMITIES: Normal. SKIN: No rashes. HOSPITAL COURSE: The patient does have COVID by test. The CBC is normal with white count slightly low at 3.5 consistent with COVID. His electrolytes were normal except potassium slightly low at 3.2 probably from diarrhea. Troponins were negative. D-dimer 891. CT of the chest showed no deep vein thrombosis, no pulmonary embolism. He was treated with Zithromax, morphine, albuterol, some methylprednisolone. By the morning at 0830 hours when I saw him he was alert, orientated, felt well and had no complaints. He was ready to go home. My exam was really normal. He will be sent home on no specific medications to isolate in house for seven days, return if he becomes shortness of breath or has more chest pain. Follow up with his primary care doctor in two weeks. His blood sugar was elevated at 234 on admission however he had IV fluids running and had just gotten some steroids. PROGNOSIS: Good.
[2021-04-22] MEDS ORDERED: Zithromax 500 MG/ 250 ML NaCl Premix 500 MG/250 ML IVPB IV SCH ×2 (10:00→22:00)
[2021-04-22 10:13] VITALS: PULSE 85; O2SAT 94
== END 2021-04-22 11:20 | disposition home or self-care (01) ==
LOC: ED 16:44 → INTOOBSV 04-22 02:14 → MED SURG 04-22 02:14
PROVIDERS: ADMIT Family Medicine; ATTEND Family Medicine
DX: U07.1 COVID-19 (principal); R05 Cough; E87.6 Hypokalemia; E87.1 Hypo-osmolality and hyponatremia; D72.819 Decreased white blood cell count, unspecified; R07.89 Other chest pain; Z20.822 Contact with and (suspected) exposure to COVID-19
CPT/HCPCS: 36000; 36415; 71045; 71260; 80053; 81001; 83605; 84145; 84484; 85025; 85379; 85610; 87040; 87070; 87400; 93005; 94640; 94762; 96360; 96365; 96366; 96368; 96374; 96375; 99284; U0003; 93268; J0456; J0696; J2930; J3475; A9270-GY; G0378